=== PATIENT | male | born 1960 | race Caucasian/White ===

== ENCOUNTER → 2023-03-31 15:42 | Outpatient (REF) | payer OTHER, SELFPAY | LOC: RAD 15:42 | PROVIDERS: ATTENDING PHYSICIAN Physician Assistant | DX: R05.3 Chronic cough (principal) | CPT/HCPCS: 71046 ==

== ENCOUNTER → 2023-06-27 09:50 | Outpatient (REF) | payer OTHER, SELFPAY | LOC: MRI 3T 09:50 | PROVIDERS: ATTENDING PHYSICIAN Physician Assistant; FAMILY PHYSICIAN Family Medicine | DX: M25.552 Pain in left hip (principal); M79.18 Myalgia, other site | CPT/HCPCS: 73721 ==

== ENCOUNTER → 2023-07-07 09:00 | Outpatient (REF) | payer OTHER, SELFPAY | LOC: RSP 09:00 | PROVIDERS: ATTENDING PHYSICIAN Family Medicine | DX: R93.89 Abnormal findings on diagnostic imaging of other specified body structures (principal) | CPT/HCPCS: 94727; 94729; 88738; 94010 ==

== ENCOUNTER → 2024-06-05 09:50 | Outpatient (REF) | payer OTHER, SELFPAY | LOC: MRI 3T 09:50 | PROVIDERS: ATTENDING PHYSICIAN Pain Medicine Interventional Pain Medicine; FAMILY PHYSICIAN Physician Assistant Medical | DX: M54.16 Radiculopathy, lumbar region (principal) | CPT/HCPCS: 72148 ==

== ENCOUNTER 2024-11-04 06:17 | Day surgery (SDC) | payer OTHER, SELFPAY ==
[2024-11-02 10:18] LABS: Hematocrit 43.1 % (39.0-52.0); Hemoglobin 15.4 g/dL (13.0-18.0); Mean Corp Hgb Conc. 35.7 g/dL (33.0-37.0); Mean Corpuscular Volume 86.4 fL (80.0-94.0); Nucleated Red Blood Cells % 0 % (-); Platelet Count 248 10^3/uL (130-400); Red Cell Dist. Width 13.1 % (11.5-14.5)
[2024-11-02 10:53] LABS: Blood Urea Nitrogen 18 mg/dl (9-20); Calcium 8.9 mg/dl (8.4-10.2); Carbon Dioxide 28 mmol/L (22-30); Chloride 101 mmol/L (98-107); Glucose 106 mg/dl (70-99); Potassium 4.5 mmol/L (3.5-5.1); Sodium 135 mmol/L (135-145); eGFR > 60.00
[2024-11-04] VITALS (7 sets, daily range): BP systolic 119–144; BP diastolic 70–90; BMI 28.5
[2024-11-04] MEDS: TYLENOL 1000 MG PO (12:04)
[2024-11-04] MEDS: NORMOSOL-R/PLASMALYTE-A 1000 IV (12:16)
--- NOTE | 2024-11-04 22:38 | W.IMMPOSTOP ---
Surgical Immed Post Op Note
-
Primary Surgeon: Remington Machado
Assisting Surgeon:
Pre-op Diagnosis: left distal radius fracture
Post-op Diagnosis: left distal radius fracture
Procedure Performed: open reduction internal fixation left distal radius
Anesthesia Type: general with regional
Specimen / Cultures: none
Estimated Blood Loss: 20mL
Complications: none apparent
Operative Findings: intra-articular distal radius fracture
Tourniquet time: 118 minutes
Implants: Sherri Variax2 4-hole distal radius plate
Operative dictation #: [id number]
== END 2024-11-04 19:42 | disposition home or self-care (01) ==
LOC: SDS 06:17
PROVIDERS: ATTENDING PHYSICIAN Student in an Organized Health Care Education/Training Program; FAMILY PHYSICIAN Family Medicine
DX: S52.572A Other intraarticular fracture of lower end of left radius, initial encounter for closed fracture (principal); W11.XXXA Fall on and from ladder, initial encounter
CPT/HCPCS: 25608; C1713; 36415; 80048; 85025; 93005

== ENCOUNTER 2025-01-10 11:48 | Outpatient (RCR) | payer OTHER, SELFPAY | END 2025-01-10 23:59 | disposition home or self-care (01) | LOC: ROT 11:48 | PROVIDERS: ATTENDING PHYSICIAN Student in an Organized Health Care Education/Training Program; FAMILY PHYSICIAN Family Medicine | DX: Z47.89 Encounter for other orthopedic aftercare (principal); S52.502D Unspecified fracture of the lower end of left radius, subsequent encounter for closed fracture with routine healing; Z73.6 Limitation of activities due to disability; M62.81 Muscle weakness (generalized); W11.XXXD Fall on and from ladder, subsequent encounter | CPT/HCPCS: 97018; 97110; 97140; 97166; 97535 ==

== ENCOUNTER 2025-02-14 15:01 | Outpatient (RCR) | payer OTHER, SELFPAY | END 2025-02-14 23:59 | disposition home or self-care (01) | LOC: ROT 15:01 | PROVIDERS: ATTENDING PHYSICIAN Student in an Organized Health Care Education/Training Program; FAMILY PHYSICIAN Family Medicine | DX: Z47.89 Encounter for other orthopedic aftercare (principal); S52.502D Unspecified fracture of the lower end of left radius, subsequent encounter for closed fracture with routine healing; Z73.6 Limitation of activities due to disability; M62.81 Muscle weakness (generalized); W11.XXXD Fall on and from ladder, subsequent encounter | CPT/HCPCS: 97018; 97110; 97140 ==